=== PATIENT | female | born 1995 | race Two or more races ===

== ENCOUNTER 2016-04-07 21:08 | Outpatient (CLI) | payer OTHER ==
[2016-04-07 22:54] LABS: SPECIFIC GRAVITY 1.025 (1.001-1.030); URINE BILIRUBIN NEGATIVE (NEGATIVE); URINE BLOOD TRACE (NEGATIVE); URINE GLUCOSE (UA) NEGATIVE (NEGATIVE); URINE LEUKOCYTE ESTERASE TRACE (NEGATIVE); URINE NITRITE NEGATIVE (NEGATIVE); URINE PROTEIN TRACE (NEGATIVE); URINE UROBILINOGEN NORMAL (0-1 mg/dl)
[2016-04-07 23:03] LABS: URINE COLOR YELLOW
[2016-04-07 23:04] LABS: URINE APPEARANCE CLOUDY
[2016-04-07 23:06] LABS: URINE BACTERIA 2+; URINE RBC 0-2 /hpf
[2016-04-07 23:12] VITALS: BMI 29.8
== END 2016-04-07 23:37 | disposition home or self-care (01) ==
LOC: FBCOUT 21:08 → FBC 21:08 → FBCOUT 23:37
PROVIDERS: ATTEND Advanced Practice Midwife
DX: O47.9 False labor, unspecified (principal); Z3A.00 Weeks of gestation of pregnancy not specified
CPT/HCPCS: 81001; 59025; 81002; G0463

== ENCOUNTER 2016-04-25 00:02 | Outpatient (CLI) | payer OTHER ==
[2016-04-25 00:43] VITALS: BMI 32.4
[2016-04-25] MEDS ORDERED: PROMETHAZINE HCL 25 MG/ML VIAL IM ONE (04:47)
[2016-04-25] MEDS ORDERED: MORPHINE SULFATE 10 MG/ML SYRINGE IM ONE (04:50)
== END 2016-04-25 05:36 | disposition home or self-care (01) ==
LOC: FBC 00:02 → FBCOUT 00:02
PROVIDERS: ATTEND Advanced Practice Midwife
DX: O47.9 False labor, unspecified (principal); Z3A.00 Weeks of gestation of pregnancy not specified
CPT/HCPCS: 96372 ×2; 59025; J2270; J2550; G0463

== ENCOUNTER 2016-04-26 15:30 | Inpatient (IN) | payer OTHER ==
[2016-04-26 16:05] VITALS: BMI 32.5
[2016-04-26] MEDS ORDERED: OXYTOCIN IN LR 0 ML IV ONE (16:41)
[2016-04-26] MEDS ORDERED: MINERAL OIL 25 ML BOT ONE (16:41)
[2016-04-26] MEDS ORDERED: LIDOCAINE Viscous 2% 15 ML UDCUP ONE (16:41)
[2016-04-26] MEDS ORDERED: LIDOCAINE 1% (PRES FREE) 30 ML VIAL ONE (16:41)
[2016-04-26] MEDS ORDERED: PUMP TUBING ONE (16:41)
[2016-04-26] MEDS ORDERED: OXYTOCIN 10 UNITS/ML VIAL ONE (16:41)
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
--- NOTE | 2016-04-26 20:47 | PDOC36 ---
Provider Note Subject: labor progress note - AROM of forbag Note: S: Sharita has been in and out of the water, and finds relief with walking around. States contractions are more painful but desires augmentation with AROM of forbag. O: VE: 5.5/100/-1, unchanged CTX q 3-5min/lasting 60-90sec/moderate TOCO: 145/moderate/accels present/decels absent T: 36.6C A: with IUP at 40w1d. SROM for clear fluid, GBS neg, afebrile Uncomplicated (Hx trauma, depression) P: Reviewed normal progression, option for AROM and risks/benefits, which she requests AROM. AROM for clear fluid, small, encouraged up right positions and active movement Anticipate
--- NOTE | 2016-04-26 23:41 | PCMDEL ---
Delivery Note - Labor 1st stage (hr/min):: 12h53m 2nd stage (hr/min):: 0h43m 3rd stage (hr/min):: 0h10m Total (hr/min):: 13h46m Pushed (hr/min):: 0h43m - Delivery Delivery (Date): 04/26/16 Delivery (Time): 22:36 Infant Gender: Male Presentation: Cephalic Position: OA Umbilical Cord: 3 Vessel Delayed Cord Clamping:: > 3 min 1 Minute Total: 9 5 Minute Total: 9 Placenta:: Spontaneous, intact, suha, 3vc EBL:: 200ml Perineum:: intact Suture:: none Anesthesia/Meds:: none Length ROM:: 8h6m Comments:: Following spontaneous onset of contractions at 0900, then SROM for clear fluid at approx 1430, Sharita made steady progress, and at 1900 requested AROM of forbag for augmentation. AROM for clear fluid was followed by rapid progress from 5cm to complete and spontaneous urge to push. Through labor she coped with support of her partner and family, and hydrotherapy. status was appropriate for IA throughout 1st stage and was switched to continuous monitoring with 2nd stage and auscultation of decreases with pushing. FHT then Cat. I and II during 2nd stage for early and variable decels. Sharita pushed effectively in semi-fowlers, right/left lateral. She received O2 d/ t her perception of restrictions to respiration and hx of asthma, though VSS throughout 1st and 2nd stage. Slow delivery of head, OA to OLGA, was followed by shoulder dystocia x 60 seconds, relieved by Lian and cork- screw maneuver with easy delivery of posterior arm and shoulders. Infant placed on maternal abdomen for drying and bonding, Apgars 9/9. Sharita fainted at moment of and was easily awoken and she maintained stable vital signs. AMTSL declined. Delayed cord clamping until urge to delivery placenta, >3min, and cut by FOB. Spontaneous delivery of intact placenta, suha, 3vc. Fundus firm, midline, at U. Intact perineum. Hemostasis achieved. EBL 200ml. Mom and baby stable and bonding.
[2016-04-26] MEDS ORDERED: ACETAMINOPHEN 325 MG TABLET PO PRN (23:43)
[2016-04-26] MEDS ORDERED: MAGNESIUM HYDROXIDE 30 ML UDCUP PO PRN (23:43)
[2016-04-26] MEDS ORDERED: CALCIUM CARBONATE 500 MG TAB.CHEW PO PRN (23:43)
[2016-04-26] MEDS ORDERED: LANOLIN 50 APPLIC/7G TUBE TP PRN (23:43)
[2016-04-26] MEDS ORDERED: BENZOCAINE/MENTHOL 60 APPLIC/BOT TP PRN (23:43)
[2016-04-27] MEDS: HYDROCODONE/ACETAMINOPHEN 5/325MG TABLET PO PRN ×4 (07:32→19:36)
[2016-04-27] MEDS: IBUPROFEN 800 MG TABLET PO SCH ×4 (07:32→23:44)
[2016-04-27] MEDS: DOCUSATE SODIUM 100 MG CAPSULE PO PRN (08:29)
--- NOTE | 2016-04-27 19:35 | PDOC44 ---
- Subjective Day: 1 (stable) S: sitting in bed post shower. Feeling very clean and happy! She states is going well, her bleeding is stable, and her pain is well managed. She is happy with experience. SHe has been up ad antoine without issue, though notes some irregular feelings of lightheadedness and admits she hasn't eaten much today. Reviewed importance of nutrition and potential causes of lightheadedness (dehydration, low blood glucose, and anemia), will repeat H/ H prior to discharge. Reports Flatus, Reports Pain Tolerable, Reports , Reports Lochia Light, Reports Tolerating Regular Diet - Objective Temp Pulse Resp BP Pulse Ox 98.1 F 90 18 122/58 97 04/27/16 14:16 04/27/16 14:16 04/27/16 14:16 04/27/16 14:16 04/26/16 23:03 Current Medications Generic Name Dose Route Start Last Admin Trade Name Freq PRN Reason Stop Dose Admin Acetaminophen 325 - 650 mg 04/26/16 23:43 Tylenol PO Q4H PRN Pain (Mild) Acetaminophen/Hydrocodone Bitart 1 - 2 tab 04/26/16 23:43 04/27/16 14:06 [place] 5/325 PO 2 tab Q4H PRN Administration Pain (Moderate) Benzocaine/Menthol 1 applic 04/26/16 23:43 Dermoplast TP PRN PRN Patient Comfort Calcium Carbonate/Glycine 500 - 1,000 mg 04/26/16 23:43 Tums PO BID PRN Indigestion Docusate Sodium 100 mg 04/26/16 23:43 04/27/16 08:29 Colace PO 100 mg DAILY PRN Administration Comfort Emollient Ointment 1 applic 04/26/16 23:43 Eia-L-Thcalu TP PRN PRN sore nipples Ibuprofen 800 mg 04/26/16 23:43 04/27/16 14:06 Motrin PO 800 mg Q6H [place] Administration Magnesium Hydroxide 30 ml 04/26/16 23:43 Milk Of Magnesia PO BEDTIME PRN Constipation Sodium Chloride 10 ml 04/26/16 23:43 Normal Saline 10ml Flush IV PRN PRN IV Flush - Physical Exam General: Afebrile Psych/Mental Status: Mood/Affect Appropriate, Bonding Well Neurological: Oriented x 4, Normal Speech Lungs: Clear to Auscultation Bilaterally Cardiovascular: Regular Rate and Rhythm Breast: Soft, Skin intact, Nipples Intact Fundus: Firm, Midline, Below Umbilicus - Problems:Assessment/Plan (1) (normal spontaneous vaginal delivery) Status: AcuteAssessment/Plan: A: PPD #1 s/p exclusively stable P: Reviewed routine recovery. Plans nexplanon prior to discharge tomorrow. Disposition: Stable
[2016-04-28] MEDS: IBUPROFEN 800 MG TABLET PO SCH ×3 (00:58→09:15)
[2016-04-28] MEDS: HYDROCODONE/ACETAMINOPHEN 5/325MG TABLET PO PRN ×2 (02:36→09:16)
[2016-04-28 07:54] VITALS: BP 124/61
[2016-04-28] MEDS: DOCUSATE SODIUM 100 MG CAPSULE PO PRN (09:15)
[2016-04-28 13:09] LABS: HEMATOCRIT 34.1 % (37.0-47.0); HEMOGLOBIN 10.7 gm/l (12.0-16.0)
--- NOTE | 2016-04-29 02:41 | PDOC36 ---
Provider Note Subject: nexplanon insert Note: Procedure: Reviewed risks and benefits, consent signed. Performed under aseptic technique. Pt placed in supine position. Insertion site in left arm identified and cleansed with betadine. 2cc of 1% lidocaine injected , Nexplanon placed using hat maker. Device palpated by myself and patient after insertion. Pressure dressing applied with instructions to unwrap in 24 hours, leave bandaid for 3 days. Patient tolerated procedure well. Danger signs reviewed. Lidocaine and Nexplanon supplied by outpatient clinic and charted and charged in [employer].
--- NOTE | 2016-04-29 02:43 | PDOC39B ---
Hospital Course: ADMIT DATE: 04/26/16 DISCHARGE DATE: 04/27/16 ADMISSION DIAGNOSES: Active Labor PROCEDURES: HISTORY OF PRESENT ILLNESS: 20 year old G2 T1 L1 at 40 weeks 1 days presenting with active labor. HOSPITAL COURSE: Following spontaneous onset of contractions at 0900, then SROM for clear fluid at approx 1430, Sharita made steady progress, and at 1900 requested AROM of forbag for augmentation. AROM for clear fluid was followed by rapid progress from 5cm to complete and spontaneous urge to push. Through labor she coped with support of her partner and family, and hydrotherapy. status was appropriate for IA throughout 1st stage and was switched to continuous monitoring with 2nd stage and auscultation of decreases with pushing. FHT then Cat. I and II during 2nd stage for early and variable decels. Sharita pushed effectively in semi-fowlers, right/left lateral. She received O2 d/ t her perception of restrictions to respiration and hx of asthma, though VSS throughout 1st and 2nd stage. Slow delivery of head, OA to OLGA, was followed by shoulder dystocia x 60 seconds, relieved by Lian and cork- screw maneuver with easy delivery of posterior arm and shoulders. Infant placed on maternal abdomen for drying and bonding, Apgars 9/9. Sharita fainted at moment of and was easily awoken and she maintained stable vital signs. AMTSL declined. Delayed cord clamping until urge to delivery placenta, >3min, and cut by FOB. Spontaneous delivery of intact placenta, suha, 3vc. Fundus firm, midline, at U. Intact perineum. Hemostasis achieved. EBL 200ml. Mom and baby stable and bonding. course was uneventful and routine. Her bleeding is stable, and her pain is well managed. She is happy with experience. She has been up ad antoine without issue, though notes some irregular feelings of lightheadedness and admits she hasn't eaten much today. Reviewed importance of nutrition and potential causes of lightheadedness (dehydration, low blood glucose, and anemia) , repeat H/H done. Her is going well. Prior to discharge, nexplanon inserted into left arm for patient's desired contraception. By day of discharge the patient is stable, well and ready to go home. - Physical Exam Vital Signs: Temp Pulse Resp BP Pulse Ox 97.6 F 91 18 124/61 97 04/28/16 07:53 04/28/16 07:53 04/28/16 07:53 04/28/16 07:53 04/26/16 23:03 General: Afebrile Psych/Mental Status: Mood/Affect Appropriate, Judgment/Insight Intact, Bonding Well Neurological: Oriented x 4, Normal Gait, Normal Speech Lungs: Clear to Auscultation Bilaterally Cardiovascular: Regular Rate and Rhythm Breast: Soft, Skin intact, Nipples Intact Fundus: Firm, Midline, Below Umbilicus Genitourinary: Normal Female Genitalia - Discharge Diagnosis (1) (normal spontaneous vaginal delivery) Status: AcuteAssessment/Plan: A: PPD #2 s/p exclusively stable P: Reviewed routine recovery, warning s/s, when to call [facility], and handout. Nexplanon inserted for control prior to discharge. See provider note. RTC in 2wks and 6wks . Discharge to home. - Discharge Plan Disposition: Home Instruction Forms: Vaginal Discharge Instructions Additional Instructions: Midwifery 'After the ' handout given to patient. Prescriptions: Hydrocodone Bit/Acetaminophen [[place] 5/325] 1 tab PO Q4-6H PRN #20 tablet PRN Reason: Pain Follow-Up: Sharita Chanel CNM [Primary Care Provider] - 05/09/16 2:20 pm (in [place])
== END 2016-04-28 13:33 | disposition home or self-care (01) | DRG 775 ==
LOC: FBCOUT 15:30 → FBC 15:31 → FBCOUT 16:30 → FBC 04-27 09:20
PROVIDERS: ADMIT Registered Nurse; ATTEND Advanced Practice Midwife
PROC: 10E0XZZ Delivery of Products of Conception, External Approach (ICD-10-PCS; principal; 2016-04-26)
PROC: 10907ZC Drainage of Amniotic Fluid, Therapeutic from Products of Conception, Via Natural or Artificial Opening (ICD-10-PCS; 2016-04-26)
PROC: 0XH Anatomical Regions, Upper Extremities, Insertion (ICD-10-PCS; 2016-04-28)
DX: O99.52 Diseases of the respiratory system complicating childbirth (principal); J45.909 Unspecified asthma, uncomplicated; O87.8 Other venous complications in the puerperium; O99.344 Other mental disorders complicating childbirth; F32.9 Major depressive disorder, single episode, unspecified; Z37.0 Single live birth; Z3A.40 40 weeks gestation of pregnancy